=== PATIENT | male | born 1930 | race Two or more races ===

== ENCOUNTER → 2017-08-20 | Outpatient (CLI) | payer OTHER | LOC: CIMAGING 11:21 | PROVIDERS: ATTEND Family Medicine | DX: J98.09 Other diseases of bronchus, not elsewhere classified (principal); N19 Unspecified kidney failure; Z85.46 Personal history of malignant neoplasm of prostate | CPT/HCPCS: 71046-PO ==

== ENCOUNTER → 2018-05-13 | Outpatient (CLI) | payer OTHER | LOC: CIMAGING 16:11 ==